=== PATIENT | female | born 1975 | race African-American/Black ===

== ENCOUNTER 2016-12-06 16:53 | Emergency (ER) | payer MEDICAID ==
[~2016-12-06 16:53] MED LIST: ALBU6.7H INH; LORTA10 PO; MOBI7.5T PO; XANA2TAB2 PO
[2016-12-06 17:01] VITALS: BP 113/90; PULSE 102; RESP 20; TEMP 98.1; O2SAT 100
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
== END 2016-12-06 16:59 | disposition left against medical advice (07) ==
LOC: NETRI 16:53
DX: R06.02 Shortness of breath (principal); R07.9 Chest pain, unspecified
CPT/HCPCS: 99281

== ENCOUNTER 2017-06-29 09:54 | Emergency (ER) | payer MEDICAID ==
[~2017-06-29] VITALS: Ht 162.6 cm; Wt 87.0 kg
[2017-06-29 10:14] VITALS: BP 133/86; PULSE 79; RESP 17; TEMP 97.8; O2SAT 100
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
[2017-06-29] MEDS ORDERED: SODIUM CHLORIDE 0.9% FLUSH 10 ML FLUSH IV FLUSH PRN (10:30)
[2017-06-29] MEDS ORDERED: MORPHINE SULFATE 2 MG/ML SYRINGE IV PUSH ONE (10:30)
[2017-06-29] MEDS ORDERED: ONDANSETRON HCL 4 MG/2 ML VIAL IV PUSH ONE (10:30)
[2017-06-29] MEDS ORDERED: CLON0.2T PO (10:34)
[2017-06-29] MEDS ORDERED: MUSCLE RELAXER PO (10:34)
[2017-06-29] MEDS ORDERED: HYDR-3583 PO (10:34)
[2017-06-29] MEDS ORDERED: ALPR2TAB3 PO (10:34)
[2017-06-29] MEDS ORDERED: AMLO10TA2 PO (10:34)
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
[2017-06-29] MEDS ORDERED: ZOFR4TAB PO (11:33)
[2017-06-29] MEDS ORDERED: MECL12.574 PO (11:33)
[2017-06-29] MEDS ORDERED: IBUP1TAB7 PO (11:33)
[2017-06-29] MEDS ORDERED: AMOX875T PO (11:38)
[2017-06-29] MEDS ORDERED: IBUPROFEN 800 MG TAB PO ONE (11:45)
[2017-06-29] MEDS ORDERED: MECLIZINE HCL 25 MG TAB PO ONE (11:45)
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
== END 2017-06-29 12:54 | disposition home or self-care (01) ==
LOC: NEPK 09:54
DX: S02.2XXA Fracture of nasal bones, initial encounter for closed fracture (principal); S06.0X9A Concussion with loss of consciousness of unspecified duration, initial encounter; Y00.XXXA Assault by blunt object, initial encounter
CPT/HCPCS: 70450; 70486; 99283